=== PATIENT | female | born 1990 | race Caucasian/White ===

== ENCOUNTER 2018-01-15 15:01 | Emergency (ER) | END 2018-01-15 17:02 | disposition home or self-care (01) ==

== ENCOUNTER 2018-08-14 19:41 | Emergency (ER) | payer OTHER ==
[~2018-08-14] VITALS: Ht 154.9 cm; Wt 107.1 kg
[~2018-08-14 19:41] MED LIST: ACET500C5 PO; ONDA4TAB14 PO; PREN-39 PO
[2018-08-14 20:10] VITALS: Ht 154.9 cm; Wt 107.1 kg
--- NOTE | 2018-08-14 22:05 | ERD ---
ER Documentation Chief Complaint Chief Complaint LRQ AP radiating to R lower back, nausea X 2 hrs, Hx DMT2 ROS All systems reviewed and are negative except as per history of present illness. Medications Home Meds Active Scripts Acetaminophen* (Tylophen*) 500 Mg Capsule, 1 CAP PO Q6H PRN for PAIN AND OR ELEVATED TEMP, #20 CAP Prov:BERTALEONOR Rajendra. CLINICAL ANALYST 01/15/18 Ondansetron (Ondansetron Odt) 4 Mg Tab.rapdis, 4 MG PO Q6H PRN for NAUSEA AND/OR VOMITING, #10 TAB Prov:LEONOR HAMPTON. CLINICAL ANALYST 01/15/18 Reported Medications Vits W-Ca,Fe,Fa(<1MG) ( Vitamins) 1 Tab Tablet, PO DAILY 08/29/12 Allergies Allergies: Coded Allergies: prochlorperazine edisylate (Verified Allergy, 08/29/12) prochlorperazine maleate (Verified Allergy, 08/29/12) PMhx/Soc History of Surgery: No Anesthesia Reaction: No Hx Neurological Disorder: No Hx Respiratory Disorders: Yes (ASTHMA) Hx Cardiac Disorders: No Hx Psychiatric Problems: No Hx Miscellaneous Medical Probl: No Hx Alcohol Use: No Hx Substance Use: No Hx Tobacco Use: No Physical Exam Vitals Vital Signs Date Temp Pulse Resp B/P (MAP) Pulse Ox O2 O2 Flow FiO2 Time Delivery Rate 08/14/18 98.5 99 18 143/78 96 20:10 (99) Physical Exam Const: No acute distress Head: Atraumatic Eyes: Normal Conjunctiva ENT: Normal External Ears, Nose and Mouth. Neck: Full range of motion. No meningismus. Resp: Clear to auscultation bilaterally Cardio: Regular rate and rhythm, no murmurs Abd: Soft, non tender, non distended. Normal bowel sounds Skin: No petechiae or rashes Back: No midline or flank tenderness Ext: No cyanosis, or edema Neur: Awake and alert Psych: Normal Mood and Affect Results 24 hrs Current Medications Medications Dose Sig/Abdias Start Time Status Last (Trade) Ordered Route PRN Stop Time Admin Dose Reason Admin Ondansetron 4 mg ONCE STAT 08/14/18 DC HCl (Zofran ODT 22:24 Odt) 08/14/18 22:26 1 tab ONCE ONCE 08/14/18 DC Acetaminophen PO 22:30 / 08/14/18 22:31 Hydrocodone Bitart ([place] (5/325)) YU ZAVALA Aug 14, 2018 22:05
[2018-08-14] MEDS ORDERED: ONDANSETRON (ODT) 4 MG TAB ODT STA (22:24)
[2018-08-14] MEDS ORDERED: HYDROCODONE/APAP (5/325) TAB PO ONE (22:30)
--- NOTE | 2018-08-14 22:36 | ERD ---
ER Documentation Chief Complaint Chief Complaint LRQ AP radiating to R lower back, nausea X 2 hrs, Hx DMT2 HPI Patient is a 27-year-old female, with past medical history of DM type II, presents the ER for concerns of right lower quadrant pain radiating to her right lower back x2 hours. Patient denies any fevers or chills. Patient denies vomiting however she admits to nausea. She denies any dysuria, urgency, urgency or hematuria. Patient denies any rectal bleeding or diarrhea. Patient's last menstrual period was 2 weeks ago. ROS All systems reviewed and are negative except as per history of present illness. Medications Home Meds Active Scripts Ibuprofen* (Motrin*) 600 Mg Tab, 600 MG PO Q6, #30 TAB Prov:LAKSHMI LASSITER PA-C 08/15/18 Acetaminophen* (Tylophen*) 500 Mg Capsule, 1 CAP PO Q6H PRN for PAIN AND OR ELEVATED TEMP, #20 CAP Prov:LEONOR HAMPTON. HEAD WAITER/WAITRESS 01/15/18 Ondansetron (Ondansetron Odt) 4 Mg Tab.rapdis, 4 MG PO Q6H PRN for NAUSEA AND/OR VOMITING, #10 TAB Prov:LEONOR HAMPTON. HEAD WAITER/WAITRESS 01/15/18 Reported Medications Vits W-Ca,Fe,Fa(<1MG) ( Vitamins) 1 Tab Tablet, PO DAILY 08/29/12 Allergies Allergies: Coded Allergies: prochlorperazine edisylate (Verified Allergy, 08/29/12) prochlorperazine maleate (Verified Allergy, 08/29/12) PMhx/Soc History of Surgery: No Anesthesia Reaction: No Hx Neurological Disorder: No Hx Respiratory Disorders: Yes (ASTHMA) Hx Cardiac Disorders: No Hx Psychiatric Problems: No Hx Miscellaneous Medical Probl: No Hx Alcohol Use: No Hx Substance Use: No Hx Tobacco Use: No FmHx Family History: No diabetes Physical Exam Vitals Vital Signs Date Temp Pulse Resp B/P (MAP) Pulse Ox O2 O2 Flow FiO2 Time Delivery Rate 08/14/18 98.5 99 18 143/78 96 20:10 (99) Physical Exam GENERAL: Well-developed, well-nourished female. Appears in no acute distress. Speaking in full sentences. HEAD: Normocephalic, atraumatic. EYES: Pupils are equally reactive bilaterally. EOMs grossly intact. No conjunctival erythema. ENT: Moist mucous membranes. No uvula deviation. No kissing tonsils. NECK: Supple. No meningismus. Normal range of motion of the neck. LUNG: Clear to auscultation bilaterally. No rhonchi, wheezing, rales or coarse breath sounds. HEART: Regular rate and rhythm. No murmurs, rubs or gallops. ABDOMEN: Soft and nondistended. Tender to palpation in the right lower quad rant. Positive bowel sounds in all four quadrants. No rebound tenderness, no guarding. (-) McBurney's point tenderness. No CVA tenderness. EXTREMITIES: Equal pulses bilaterally. No peripheral clubbing, cyanosis or edema. No unilateral leg swelling. NEUROLOGIC: Alert and oriented. Moving all four extremities without any difficulty. Normal speech. Steady gait. SKIN: Normal color. Warm and dry. No rashes or lesions. Result Diagram: 08/14/18223108/14/182231 Results 24 hrs Laboratory Tests Test 08/14/18 22:32 08/14/18 22:39 White Blood Count 12.1 10^3/ul Red Blood Count 4.37 10^6/ul Hemoglobin 11.7 g/dl Hematocrit 36.4 % Mean Corpuscular Volume 83.3 fl Mean Corpuscular Hemoglobin 26.8 pg Mean Corpuscular Hemoglobin Concent 32.1 g/dl Red Cell Distribution Width 14.6 % Platelet Count 383 10^3/UL Mean Platelet Volume 9.1 fl Immature Granulocytes % 0.300 % Neutrophils % 71.0 % Lymphocytes % 23.8 % Monocytes % 3.7 % Eosinophils % 1.0 % Basophils % 0.2 % Nucleated Red Blood Cells % 0.0 /100WBC Immature Granulocytes # 0.040 10^3/ul Neutrophils # 8.6 10^3/ul Lymphocytes # 2.9 10^3/ul Monocytes # 0.5 10^3/ul Eosinophils # 0.1 10^3/ul Basophils # 0.0 10^3/ul Nucleated Red Blood Cells # 0.0 10^3/ul Urine Color YELLOW Urine Clarity SLIGHTLY CLOUDY Urine pH 6.0 Urine Specific [place] 1.029 Urine Ketones NEGATIVE mg/dL Urine Nitrite NEGATIVE mg/dL Urine Bilirubin NEGATIVE mg/dL Urine Urobilinogen NEGATIVE mg/dL Urine Leukocyte Esterase NEGATIVE [place]/ul Urine Microscopic RBC 0 /HPF Urine Microscopic WBC 1 /HPF Urine Squamous Epithelial Cells FEW /HPF Urine Mucus MODERATE /HPF Urine Hemoglobin NEGATIVE mg/dL Urine Glucose NEGATIVE mg/dL Urine Total Protein NEGATIVE mg/dl Sodium Level 142 mmol/L Potassium Level 4.0 mmol/L Chloride Level 101 mmol/L Carbon Dioxide Level 28 mmol/L Anion Gap 13 Blood Urea Nitrogen 11 mg/dl Creatinine 0.58 mg/dl Est Glomerular Filtrat Rate mL/min > 60 mL/min Glucose Level 113 mg/dl Calcium Level 9.7 mg/dl Total Bilirubin 0.4 mg/dl Direct Bilirubin 0.00 mg/dl Indirect Bilirubin 0.4 mg/dl Aspartate Amino Transf (AST/SGOT) 27 IU/L Alanine Aminotransferase (ALT/SGPT) 31 IU/L Alkaline Phosphatase 61 IU/L Total Protein 7.7 g/dl Albumin 4.6 g/dl Globulin 3.10 g/dl Albumin/Globulin Ratio 1.48 Lipase 63 U/L POC Beta HCG, Qualitative NEGATIVE Current Medications Medications Dose Sig/Abdias Start Time Status Last (Trade) Ordered Route PRN Stop Time Admin Dose Reason Admin Ondansetron 4 mg ONCE STAT 08/14/18 DC 08/14/18 HCl (Zofran ODT 22:24 22:40 Odt) 08/14/18 22:26 1 tab ONCE ONCE 08/14/18 DC 08/14/18 Acetaminophen PO 22:30 22:43 / 08/14/18 22:31 Hydrocodone Bitart ([place] (5/325)) Procedures/MDM ED COURSE: The patient was stable throughout ED course. I kept the patient and/or family informed of laboratory and diagnostic imaging results throughout the ED course. DIAGNOSTIC IMAGING: Read by radiologist. Patient: REJI JUAN : 1990 Age: 27 Sex: F MR #: [id number] DOS: 08/14/18 2224 Ordering MD: LAKSHMI LASSITER PA-C Location: [facility] Room/Bed: PROCEDURE: US Pelvis with transvaginal. CLINICAL INDICATION: Right lower quadrant pain, right pelvic pain times 1 day. Last menstrual period 07/03/2018 TECHNIQUE: Multiple sonographic images of the pelvis were obtained utilizing a transabdominal and endovaginal technique. The images were reviewed on a PACS workstation. COMPARISON: None. FINDINGS: The uterus is retroverted, measures 6.6 x 4.1 x 5.2 cm and is unremarkable. The thickness of the endometrium equals 1.1 cm. The right ovary measures 5.9 x 3.2 x 4.1 cm and contains a 3.3 x 2.9 x 2.7 cm simple cyst. The left ovary measures 3.7 x 2.9 x 2.6 cm and is unremarkable. Color flow and spectral analysis demonstrates arterial and venous flow in both ovaries. Small amount of free fluid is seen in the cul-de-sac. IMPRESSION: 3.3 cm right ovarian simple cyst - almost certainly benign - no follow-up imaging of this is recommended. Small amount of free fluid in cul-de-sac. Please see above. RPTAT: HJES .Paresh Angeles MD, Date Time Electronically viewed and signed by .Paresh Angeles MD, MD on 08/14/2018 23:45 .S/ CC: LAKSHMI LASSITER PA-C [id number] Patient: REJI JUAN : 1990 Age: 27 Sex: F MR #: [id number] DOS: 08/14/18 2316 Ordering MD: LAKSHMI LASSITER PA-C Location: [facility] Room/Bed: PROCEDURE: CT Abdomen and pelvis without contrast. CLINICAL INDICATION: Abdominal pain. TECHNIQUE: CT scan of the abdomen and pelvis was performed on a multi- detector high-resolution CT scanner. Contiguous axial images were obtained from the lung bases to the ischial tuberosities without intravenous contrast. C oronal and sagittal reformatted images were also obtained. Images were reviewed on the PACS workstation. DICOM images are available. One or more of the following dose reduction techniques were used: - Automated exposure control. - Adjustment of the mA and/or kV according to patient size. - Use of iterative reconstruction technique. Exam CTD/vol = 23.26 mGy. Total exam DLP = 1475.54 mGy-cm. COMPARISON: None. FINDINGS: Evaluation of the lung bases demonstrates no pleural or parenchymal disease. Abdomen: The liver is normal in size and diffusely low in attenuation consistent with fatty infiltration. There is no focal mass or dilatation of the biliary tree. The gallbladder is not distended. The spleen, pancreas and bilateral adrenal glands are within normal limits. Bilateral kidneys are normal in size with no contour deforming mass identified. There is no radiopaque renal or ureteral calculus identified. There is no hydronephrosis or hydroureter. There is no retroperitoneal adenopathy. The abdominal aorta is of normal caliber. There is no abnormal bowel wall thickening or distension. There is no bowel obstruction or free air. A normal appendix is identified. There is no diverticulosis or diverticulitis. There is no ascites. Pelvis: The bladder is unremarkable. The uterus is unremarkable. There is a cystic structure within the right adnexa measuring 3.4 x 3.0 cm. There is no significant pelvic adenopathy or free fluid. Evaluation of the osseous structures demonstrates no suspicious lytic or blastic lesion. IMPRESSION: Right adnexal 3.4 cm cyst. Fatty infiltration of the liver. No acute abnormality identified within the abdomen and pelvis. A normal appendix is identified. .Nirav Segura MD, MD Date Time Electronically viewed and signed by .Nirav Segura MD, MD on 08/15/2018 00:36 .T/ CC: LAKSHMI LASSITER PA-C [id number] MEDICAL DECISION MAKING: This is a 27-year-old female, type II diabetic, presents the ER for concerns of right lower quadrant pain x2 hours.. Vital signs were reviewed. Patient is afe brile. Blood work was obtained. CBC did show WBC count of 12.1. Hemoglobin noted to be 11.7, hematocrit of 36. CMP showed no evidence of electrolyte abnormalities, severe acidosis, alkalosis, renal failure, or liver disease. Lipase showed no evidence of acute pancreatitis. UA showed no evidence of acute infection or hematuria. Urine test was negative. Pelvic ultrasound showed 3.3 cm right ovarian simple cyst - almost certainly benign - no follow-up imaging of this is recommended. Small amount of free fluid in cul-de-sac. Please see above. Normal blood flow noted to bilateral ovaries. CT abdomen pelvis showed Right adnexal 3.4 cm cyst. Fatty infiltration of the liver. No acute abnormality identified within the abdomen and pelvis. A normal appendix is identified. Upon reexamination, patient improvement symptoms. At this time, patient presentation was consistent with ovarian cyst. Patient was to follow-up with VASCULAR MANAGER. Differential diagnosis include but was not limited to acute coronary syndrome, AAA, mesenteric ischemia, lower lobe pneumonia, DKA, bowel perforation, cholecystitis, choledocholithiasis, ascending cholangitis, hepatic abscess, pancreatitis, PUD, gastritis, GERD, splenic rupture, diverticulitis, UTI, pyelonephritis, nephrolithiasis, appendicitis, constipation, , ectopic , PID, ovarian torsion or tubo-ovarian abscess. PRESCRIPTIONS: Ibuprofen DISCHARGE: At this time, patient is stable for discharge and outpatient management. I have instructed the patient to follow-up with his/her primary care physician in 1-2 days. I have instructed the patient to promptly return to the ER at any time for any new or worsening symptoms including increased pain, nausea, vomiting, diarrhea, fever, weakness or LOC. The patient and/or family expressed understanding of and agreement with this plan. All questions were answered. Home care instructions were provided. Disclaimer: Inadvertent spelling and grammatical errors are likely due to EHR/dictation software use and do not reflect on the overall quality of patient care. Also, please note that the electronic time recorded on this note does not necessarily reflect the actual time of the patient encounter. Departure Diagnosis: Primary Impression: Abdominal pain Abdominal location: unspecified location Qualified Codes: R10.9 - Unspecified abdominal pain Additional Impression: Ovarian cyst Laterality: right Qualified Codes: N83.201 - Unspecified ovarian cyst, right side Condition: Fair Patient Instructions: Ovarian Cyst Referrals: [facility] VASCULAR MANAGER REFERRAL LIST LAKSHMI LASSITER PA-C Aug 14, 2018 22:36
[2018-08-15] MEDS ORDERED: IBUP-1542 PO (00:55)
[2018-08-15 01:05] VITALS: BP 132/73; PULSE 80; RESP 18
== END 2018-08-15 01:06 | disposition home or self-care (01) ==
LOC: FTE 19:41
DX: N83.201 Unspecified ovarian cyst, right side (principal); E11.9 Type 2 diabetes mellitus without complications; J45.909 Unspecified asthma, uncomplicated; R10.2 Pelvic and perineal pain
CPT/HCPCS: 36415; 74176; 76830; 76856; 80053; 81001; 81025; 83690; 85025; Z7502; Z7610; 81003